=== PATIENT | male | born 1950 | race Caucasian/White ===

== ENCOUNTER 2020-06-29 14:10 | Emergency (ER) | payer MEDICARE, OTHER ==
--- NOTE | 2020-06-29 14:50 | EDM.PDOC ---
ED HPI GENERAL MEDICAL PROBLEM - General Chief Complaint: Syncope Stated Complaint: WEAK/LIGHTHEADED Time Seen by Provider: 06/29/20 14:40 Source of Information: Reports: Patient History Limitations: Reports: No Limitations - History of Present Illness INITIAL COMMENTS - FREE TEXT/NARRATIVE: 70-year-old male presents to the ED for evaluation of a near syncopal event that occurred while he was seated at his work desk in [employer]. He works as an senior financial reporting accountant. He estimates that he was sitting for a period of 10 to 15 minutes before he developed sudden onset of feeling ill. By this he means he felt lightheaded dizzy and generally unwell. Coworkers commented that he looked pallid and unhealthy. After approximately 10 minutes he was assisted to the clinic in [place] where he was assessed by nursing staff and had an ECG carried out which was normal sinus rhythm. They encouraged him to come to [place] for further evaluation. He denies starting any new medications. He does not take any energy drinks. He rarely drinks any alcohol. He does take a blood pressure pill in the morning and his protein shake in the morning. He states he started to have a sandwich at dinnertime but did not like the taste and threw it away. The ground seen was 144. He states he generally still feels a little unwell but much better than he did when this event occurred in the workplace. Onset: Today, Sudden Onset Date: 06/29/20 Onset Time: 13:30 Duration: Minutes:, Improving Location: Reports: Generalized Quality: Reports: Other Severity: Moderate (Weakness dizziness lightheadedness and generally just not feeling well.) Improves with: Reports: Other (Slowly improved with time.) Worsens with: Reports: None Context: Reports: Other (Spontaneous occurrence while seated at his desk at work as an senior financial reporting accountant.). Denies: Activity, Exercise, Lifting, Sick Contact, Trauma Associated Symptoms: Reports: Malaise, Nausea/Vomiting, Weakness. Denies: Confusion, Chest Pain, Cough, cough w sputum, Diaphoresis, Fever/Chills, Headaches, Loss of Appetite, Rash, Seizure, Shortness of Breath (Mild nausea), Syncope Treatments [employer]: Reports: Other (see below) (None.) - Related Data Allergies Allergy/AdvReac Type Severity Reaction Status Date / Time No Known Allergies Allergy Verified 03/10/15 08:37 Home Meds: Home Meds Benazepril HCl 20 mg PO DAILY 03/11/15 [History] allopurinoL [Zyloprim] 100 mg PO DAILY 03/11/15 [History] amLODIPine Besylate [Amlodipine Besylate] 5 mg PO DAILY 03/11/15 [History] hydroCHLOROthiazide [Hydrochlorothiazide] 12.5 mg PO DAILY 03/11/15 [History] Aspirin [Halfprin] 81 mg PO BEDTIME 06/29/20 [History] Fish Oil/[place]-3 Fatty Acids [Fish Oil 1,000 MG] 1 gram PO DAILY 06/29/20 [History] Levofloxacin [Levaquin] 500 mg PO DAILY #9 tablet 06/29/20 [Rx] Past Medical History Cardiovascular History: Reports: High Cholesterol, Hypertension Musculoskeletal History: Reports: Gout, Other (See Below) Other Musculoskeletal History: left ankle fracture with cast care - Infectious Disease History Infectious Disease History: Reports: Chicken Pox, Measles, Mumps Social & Family History - Tobacco Use Smoking Status *Q: Never Smoker - Caffeine Use Caffeine Use: Reports: Soda - Recreational Drug Use Recreational Drug Use: No - Living Situation & Occupation Living situation: Reports: Occupation: Employed (Works as an senior financial reporting accountant.) ED ROS GENERAL - Review of Systems Review Of Systems: See Below Constitutional: Reports: Malaise, Weakness, Fatigue, Decreased Appetite. Denies: Fever, Chills, Weight Loss HEENT: Reports: Glasses Respiratory: Denies: Shortness of Breath, Wheezing, Pleuritic Chest Pain, Cough, Sputum Cardiovascular: Reports: Blood Pressure Problem, Lightheadedness (With this episode at 1330 hrs. today.). Denies: Chest Pain, Claudication (Medication for blood pressure daily), Dyspnea on Exertion, Orthopnea, Palpitations Endocrine: Reports: Fatigue GI/Abdominal: Reports: No Symptoms : Reports: Frequency, Other (Nocturia usually x2.) Musculoskeletal: Reports: Joint Pain Skin: Reports: No Symptoms (It is gout in his feet. Has some arthritis in his knees hips low back at times) Neurological: Reports: Dizziness (Dizziness today while seated at the workplace.). Denies: Syncope Psychiatric: Reports: No Symptoms Hematologic/Lymphatic: Reports: No Symptoms Immunologic: Reports: No Symptoms ED EXAM, DIZZINESS - Physical Exam Exam: See Below Exam Limited By: No Limitations General Appearance: Alert, WD/WN, Anxious (Mildly apprehensive), Mild Distress, Other (Temperature is 36.4 with a heart rate of 91 is sinus respiratory is 20 O2 sats are 98% on room air. BP 1 [id number].) Eye Exam: Bilateral Eye: Normal Inspection, PERRL Throat/Mouth: Normal Inspection, Normal Lips, Normal Teeth, Normal Oropharynx Head Exam: Atraumatic, Normocephalic Neck: Normal Inspection, Supple, Non-Tender, Full Range of Motion. No: Carotid Bruit, Lymphadenopathy (L), Lymphadenopathy (R) Respiratory/Chest: No Respiratory Distress, Lungs Clear, Normal Breath Sounds, No Accessory Muscle Use, Chest Non-Tender Cardiovascular: Normal Peripheral Pulses, Regular Rate, Rhythm, No Edema, No Gallop, No Murmur, No Rub GI/Abdominal: Normal Bowel Sounds, Soft, Non-Tender, No Organomegaly, No Abnormal Bruit, No Mass, Pelvis Stable, Other (Mildly obese. No surgical scars.) Neurological: Alert, Normal Mood/Affect, Normal Dorsiflexion, CN II-XII Intact, Normal Plantar Flexion, Normal Reflexes, No Motor/Sensory Deficits, Oriented x 3, Other (No pronator drift. Rapid alternating movements are normal. Finger- nose assessment normal.) DTR: 1+: Achilles (R), Achilles (L), 2+: Bicep (R), Bicep (L), Patella (R), Patella (L) Back Exam: Normal Inspection, Full Range of Motion. No: CVA Tenderness (L), CVA Tenderness (R) Extremities: Normal Inspection, Normal Range of Motion, Non-Tender, No Pedal Edema Psychiatric: Normal Affect, Normal Mood, Anxious Skin Exam: Warm, Dry, Intact, Normal Color, No Rash (Oddly anxious of course.) EKG INTERPRETATION EKG Date: 06/29/20 Time: 14:49 Rhythm: NSR Rate (Beats/Min): 88 [place]: LAD-Left [place] Deviation P-Wave: Enlarged (Is 20 degrees left atrial hypertrophy) QRS: Other (Early R wave transition V2 V3 suggesting right ventricular hypertrophy versus septal hypertrophy pattern there are Q waves in leads III and aVF suggesting old inferior wall myocardial infarction) ST-T: Other (T wave flattening in aVF and lead III nonspecific) QT: Normal EKG Interpretation Comments: Abnormal ECG Course - Vital Signs Last Recorded V/S: Last Vital Signs Temp 36.2 C 06/29/20 18:34 Pulse 92 06/29/20 18:34 Resp 20 06/29/20 18:34 BP 139/82 06/29/20 18:34 Pulse Ox 95 06/29/20 18:34 Orthostatic Blood Pressure [ 135/75 Standing] Orthostatic Blood Pressure [ 136/80 Sitting] Orthostatic Blood Pressure [ 134/69 Supine] - Orders/Labs/Meds Orders: Active Orders 24 hr Category Date Time Status CULTURE URINE [RM] Stat Lab 06/29/20 15:20 Received EKG 12 Lead [EK] Stat Ther 06/29/20 14:33 Ordered Labs: Laboratory Tests 06/29/20 06/29/20 06/29/20 Range/Units 14:58 14:58 14:58 WBC 11.86 H (4.23-9.07) K/mm3 RBC 5.15 (4.63-6.08) M/mm3 Hgb 15.5 (13.7-17.5) gm/dl Hct 46.7 (40.1-51.0) % MCV 90.7 (79.0-92.2) fl MCH 30.1 (25.7-32.2) pg MCHC 33.2 (32.2-35.5) g/dl RDW Std Deviation 44.4 H (35.1-43.9) fL Plt Count 273 (163-337) K/mm3 MPV 9.2 L (9.4-12.3) fl Neut % (Auto) 83.7 H (34.0-67.9) % Lymph % (Auto) 9.4 L (21.8-53.1) % [place] % (Auto) 5.5 (5.3-12.2) % Eos % (Auto) 0.6 L (0.8-7.0) Baso % (Auto) 0.3 (0.1-1.2) % Neut # (Auto) 9.93 H (1.78-5.38) K/mm3 Lymph # (Auto) 1.12 L (1.32-3.57) K/mm3 Douglas # (Auto) 0.65 (0.30-0.82) K/mm3 Eos # (Auto) 0.07 (0.04-0.54) K/mm3 Baso # (Auto) 0.03 (0.01-0.08) K/mm3 Manual Slide Review Abnormal smear PT 10.6 (9.7-11.7) SECONDS INR 0.99 APTT 26 (22-31) SECONDS D-Dimer, Quantitative 0.26 (0.19-0.50) mg/L Sodium 136 (136-145) mEq/L Potassium 3.7 (3.5-5.1) mEq/L Chloride 97 L (98-107) mEq/L Carbon Dioxide 28 (21-32) mEq/L Anion Gap 14.7 (5-15) BUN 14 (7-18) mg/dL Creatinine 1.1 (0.7-1.3) mg/dL Est Cr Clr Drug Dosing 61.32 mL/min Estimated GFR (MDRD) > 60 (>60) mL/min BUN/Creatinine Ratio 12.7 L (14-18) Glucose 129 H (80-115) mg/dL Uric Acid (3.5-7.2) mg/dL Calcium 9.5 (8.5-10.1) mg/dL Magnesium 2.0 (1.8-2.4) mg/dl Total Bilirubin 0.4 (0.2-1.0) mg/dL AST 14 L (15-37) U/L ALT 26 (16-63) U/L Alkaline Phosphatase 80 (46-116) U/L CK-MB (CK-2) 1.2 (0-3.6) ng/ml Troponin I < 0.017 (0.00-0.056) ng/mL C-Reactive Protein 1.2 H* (<1.0) mg/dL NT-Pro-B Natriuret Pep (0-125) pg/mL Total Protein 7.7 (6.4-8.2) g/dl Albumin 3.9 (3.4-5.0) g/dl Globulin 3.8 gm/dL Albumin/Globulin Ratio 1.0 (1-2) Urine Color (Yellow) Urine Appearance (Clear) Urine pH (5.0-8.0) Ur Specific [place] (1.005-1.030) Urine Protein (Negative) Urine Glucose (UA) (Negative) Urine Ketones (Negative) Urine Occult Blood (Negative) Urine Nitrite (Negative) Urine Bilirubin (Negative) Urine Urobilinogen (0.2-1.0) Ur Leukocyte Esterase (Negative) Urine RBC (0-5) /hpf Urine WBC (0-5) /hpf Ur Squamous Epith Cells (0-5) /hpf Urine Bacteria (FEW) /hpf Urine Mucus (FEW) /hpf 06/29/20 06/29/20 06/29/20 Range/Units 14:58 14:58 15:20 WBC (4.23-9.07) K/mm3 RBC (4.63-6.08) M/mm3 Hgb (13.7-17.5) gm/dl Hct (40.1-51.0) % MCV (79.0-92.2) fl MCH (25.7-32.2) pg MCHC (32.2-35.5) g/dl RDW Std Deviation (35.1-43.9) fL Plt Count (163-337) K/mm3 MPV (9.4-12.3) fl Neut % (Auto) (34.0-67.9) % Lymph % (Auto) (21.8-53.1) % [place] % (Auto) (5.3-12.2) % Eos % (Auto) (0.8-7.0) Baso % (Auto) (0.1-1.2) % Neut # (Auto) (1.78-5.38) K/mm3 Lymph # (Auto) (1.32-3.57) K/mm3 [place] # (Auto) (0.30-0.82) K/mm3 Eos # (Auto) (0.04-0.54) K/mm3 Baso # (Auto) (0.01-0.08) K/mm3 Manual Slide Review PT (9.7-11.7) SECONDS INR APTT (22-31) SECONDS D-Dimer, Quantitative (0.19-0.50) mg/L Sodium (136-145) mEq/L Potassium (3.5-5.1) mEq/L Chloride (98-107) mEq/L Carbon Dioxide (21-32) mEq/L Anion Gap (5-15) BUN (7-18) mg/dL Creatinine (0.7-1.3) mg/dL Est Cr Clr Drug Dosing mL/min Estimated GFR (MDRD) (>60) mL/min BUN/Creatinine Ratio (14-18) Glucose (80-115) mg/dL Uric Acid 4.9 (3.5-7.2) mg/dL Calcium (8.5-10.1) mg/dL Magnesium (1.8-2.4) mg/dl Total Bilirubin (0.2-1.0) mg/dL AST (15-37) U/L ALT (16-63) U/L Alkaline Phosphatase (46-116) U/L CK-MB (CK-2) (0-3.6) ng/ml Troponin I (0.00-0.056) ng/mL C-Reactive Protein (<1.0) mg/dL NT-Pro-B Natriuret Pep 19 (0-125) pg/mL Total Protein (6.4-8.2) g/dl Albumin (3.4-5.0) g/dl Globulin gm/dL Albumin/Globulin Ratio (1-2) Urine Color Yellow (Yellow) Urine Appearance Clear (Clear) Urine pH 7.0 (5.0-8.0) Ur Specific [place] 1.025 (1.005-1.030) Urine Protein Negative (Negative) Urine Glucose (UA) Negative (Negative) Urine Ketones Negative (Negative) Urine Occult Blood Trace-intact H (Negative) Urine Nitrite Negative (Negative) Urine Bilirubin Negative (Negative) Urine Urobilinogen 0.2 (0.2-1.0) Ur Leukocyte Esterase Trace H (Negative) Urine RBC 0-5 (0-5) /hpf Urine WBC 5-10 H (0-5) /hpf Ur Squamous Epith Cells Not seen (0-5) /hpf Urine Bacteria Few (FEW) /hpf Urine Mucus Few (FEW) /hpf Meds: Medications Discontinued Medications Generic Name Dose Route Start Last Admin Trade Name Freq PRN Reason Stop Dose Admin Sodium Chloride 1,000 mls @ 500 mls/hr 06/29/20 15:00 06/29/20 15:21 Normal Saline IV 500 mls/hr ASDIRECTED PRO Administration Levofloxacin/Dextrose 500 mg/ 100 mls @ 100 mls/hr 06/29/20 16:49 06/29/20 17:04 Premix IV 06/29/20 17:48 100 mls/hr ONETIME ONE Administration - Radiology Interpretation Free Text/Narrative:: 70-year-old male presents to the ED for evaluation of a near syncopal event that occurred while 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 He believes he was sitting there for 10 to 15 minutes before he started to feel suddenly unwell with lightheadedness dizziness and coworkers commented that he appeared pale and ill in appearance. He went to the clinic in [place] with their assistance they drove him. And he was found to be in sinus rhythm at 80/min. No signs of acute ischemia were identified. ECG done by triage nurse here shows evidence of early R wave transition suggestive of right ventricular hypertrophy versus septal hypertrophy pattern. There are also Q waves in leads III and aVF suggestive of an old inferior wall myocardial infarction but no signs of acute ischemic change. Orthostatic BPs laying was 134/69 with a heart rate of 83 and standing it was 135/75 with a heart rate of 94 i.e. not orthostatic. Therefore I do not have any reason for this spell to have occurred. He denies being in any pain at the time of occurrence. Cerner is therefore for some form of arrhythmia that may have precipitated his event. It lasted between 5 and 8 minutes. He will be on the monitor continuously while in the department. Chest x-ray and routine lab work will be collected. Chances are he will be sent home on a Holter monitor. - Re-Assessments/Exams Free Text/Narrative Re-Assessment/Exam: 06/29/20 16:30 White count is mildly elevated at 11.86. The differential shows 84% neutrophils. Hemoglobin is 15.5 with hematocrit of 46.7. Platelet count is normal at 273,000. Micro reveals lymphopenia with no bands cells seen. PT is 10.6 with an INR of 0.99. PTT is 26 d-dimer is 0.26. Sodium 136 with a potassium of 3.7. Chloride is 97 with a bicarb of 28. Anion gap is 14.7. BUN is 14 with a creatinine of 1.1. GFR is greater than 60. Glucose is slightly elevated at 129. Uric acid is normal at 4.9. Calcium is 9.5 with a magnesium of 2.0. Liver function is normal. CK-MB fraction is 1.2 troponin I is less than 0.017 C-reactive protein is minimally elevated at 1.2. Total protein is 7.7 with an albumin fraction of 3.9. Urinalysis shows trace of occult blood trace of leukocyte esterase and 5-10 WBCs per high-power field. A urine culture will be ordered. Chest x-ray done portably is completely normal. Normal lung luz no sign of pneumonia. Cardiac silhouette is normal as well. 06/29/20 16:50 I have discussed the findings with the patient. Repeated his abdominal examination and he has no localized tenderness to suggest an occult source of infection in the abdomen. Patient does feel just slightly warm to palpation. He has had no chills. He has had no arrhythmias at all while in the hospital. Suspect that he may have an occult prostatitis. Will place him on Levaquin 500 mg IV at this time. Departure - Departure Time of Disposition: 18:12 Disposition: Home, Self-Care 01 Condition: Fair Clinical Impression: Prostatitis, unspecified Qualifiers: Prostatitis type: acute Qualified Code(s): N41.0 - Acute prostatitis - Discharge Information *PRESCRIPTION DRUG MONITORING PROGRAM REVIEWED*: Not Applicable *COPY OF PRESCRIPTION DRUG MONITORING REPORT IN PATIENT NKECHI: Not Applicable Prescriptions: Levofloxacin [Levaquin] 500 mg PO DAILY #9 tablet Instructions: Prostatitis, [id number] Referrals: Nabil Saravia MD [Primary Care Provider] - Forms: ED Department Discharge Additional Instructions: Evaluation in the emergency room today in regards to development of sudden onset of illness while working at your desk this afternoon. General sense of lightheadedness dizziness weakness and coworkers commented that you appeared quite pallid in appearance. Clinically you may have a very low-grade fever. Lab tests revealed a slightly elevated white blood cell count with a left shift suggesting that you were fighting off an infection. Chest x-ray proved to be negative. You have no other signs or symptoms that would be worrisome for COVID type illness. Benign abdominal examination . The urinalysis did show 5-10 pus cells per high-power field jesting a low-grade urinary tract infection. Therefore the concern is whether or not you have a low-grade urinary tract infection most commonly arising from the prostate gland which can be quite difficult to diagnose. Decision made to treat you for this infection with Levaquin 500 mg initially given intravenously in the emergency department. You will then have to take a 500 mg tablet once daily at suppertime for the next 9 days to bring the infection under control. Return to the emergency room if any further similar symptoms occur. There was no evidence that you had any underlying heart irregular rhythms to account for your symptoms. Follow-up with personal care provider if any further problems occur. Sepsis Event Note (ED) - Evaluation Sepsis Screening Result: No Definite Risk - Focused Exam Vital Signs: Vital Signs Temp Pulse Resp BP Pulse Ox 06/29/20 18:34 36.2 C 92 20 139/82 95 06/29/20 14:29 36.4 C 91 20 144/74 H 98 - My Orders Last 24 Hours: My Active Orders 06/29/20 14:33 EKG 12 Lead [EK] Stat 06/29/20 15:20 CULTURE URINE [RM] Stat - Assessment/Plan Last 24 Hours: My Active Orders 06/29/20 14:33 EKG 12 Lead [EK] Stat 06/29/20 15:20 CULTURE URINE [RM] Stat
[2020-06-29] MEDS ORDERED: Sodium Chloride 0.9% 1,000 ML IV SCH (15:00)
--- NOTE | 2020-06-29 15:46 | CR ---
Chest: Portable view of the chest was obtained. Comparison: No prior chest imaging is available. Heart size is normal. Tortuous thoracic aorta is seen. Lungs are clear with no acute parenchymal change. Bony structures are grossly intact. Impression: 1. Nothing acute is identified on portable chest x-ray. Diagnostic code #1 This report was dictated in MDT
[2020-06-29] MEDS ORDERED: Levofloxacin/Dextrose 5%-Water 500 MG in Premix Bag 1 BAG IV ONE (16:49)
[2020-06-29 18:34] VITALS: BP 139/82; PULSE 92
== END 2020-06-29 18:40 | disposition home or self-care (01) ==
LOC: JD.ED 14:10
DX: N41.0 Acute prostatitis (principal); I10 Essential (primary) hypertension; M10.9 Gout, unspecified; E66.9 Obesity, unspecified; Z68.33 Body mass index [BMI] 33.0-33.9, adult; Z79.82 Long term (current) use of aspirin; Z79.899 Other long term (current) drug therapy
CPT/HCPCS: 36415; 71045; 80053; 81001; 82553; 83735; 83880; 84484; 84550; 85025; 85379; 85610; 85730; 86140; 87086; 93005; 96361; 96365; 99284; J1956; J7030; 93010; 99283

== ENCOUNTER 2023-06-18 11:02 | Emergency (ER) | payer OTHER, MEDICARE ==
[2023-06-18] MEDS ORDERED: Sodium Chloride 0.9% 10 ML Syringe FLUSH PRN (11:19)
[2023-06-18] MEDS ORDERED: Iopamidol 612 MG/ML 100 ML Bottle IVPUSH ONE ×2 (11:19→11:51)
[2023-06-18 11:30] LABS: BASOPHILS ABSOLUTE AUTO 0.1 K/mm3 (0.0-0.2); BASOPHILS PERCENT AUTO 0.3 % (0.0-1.0); EOSINOPHILS ABSOLUTE AUTO 0.1 K/mm3 (0.0-0.4); EOSINOPHILS PERCENT AUTO 0.6 % (0.0-6.0); HEMATOCRIT 42.5 % (42.0-52.0); HEMOGLOBIN 14.8 gm/dl (14.0-18.0); IMMATURE GRAN ABSOLUTE AUTO 0.38 K/mm3 (0.00-0.05); IMMATURE GRAN PERCENT AUTO 1.7 % (0.0-0.4); LYMPHOCYTES ABSOLUTE AUTO 4.3 K/mm3 (1.0-4.8); LYMPHOCYTES PERCENT AUTO 19.6 % (24.0-44.0); MEAN CORPUSCULAR HEMOGLOBIN 31.4 pg (28.0-32.0); MEAN CORPUSCULAR HGB CONC 34.8 g/dl (32.0-36.0); MEAN CORPUSCULAR VOLUME 90.2 fl (83.0-99.0); MEAN PLATELET VOLUME 9.1 fl (9.4-12.4); MONOCYTES ABSOLUTE AUTO 1.1 K/mm3 (0.0-0.8); MONOCYTES PERCENT AUTO 4.9 % (0.0-8.0); NEUTROPHILS ABSOLUTE AUTO 16.1 K/mm3 (1.8-7.7); NEUTROPHILS PERCENT AUTO 72.9 % (41.0-71.0); PLATELET COUNT,PLT 318 K/mm3 (150-400); RED BLOOD CELL COUNT 4.71 M/mm3 (4.52-5.90); WHITE BLOOD CELL COUNT,WBC 22.05 K/mm3 (3.9-11.3)
[2023-06-18] MEDS ORDERED: Lactated Ringers 1,000 ML IV SCH (11:30)
[2023-06-18 11:42] LABS: ALBUMIN 3.8 g/dl (3.4-5.0); ANION GAP 15.8 (5-15); BILIRUBIN TOTAL 0.8 mg/dL (0.2-1.0); BUN/CREATININE RATIO 14.6 (14-18); CALCIUM 9.4 mg/dL (8.5-10.1); CREATININE 1.3 mg/dL (0.7-1.3); EST CRCL DRUG DOSING (CG) 48.02 mL/min; POTASSIUM,K 3.8 mEq/L (3.5-5.1); PROTEIN TOTAL,TP 7.5 g/dl (6.4-8.2)
[2023-06-18 12:02] LABS: INR 0.99; PROTHROMBIN TIME 10.6 SECONDS (9.7-12.0)
[2023-06-18 12:03] LABS: PTT,PARTIAL THROMBOPLSTIN TIME 24.3 SECONDS (21.7-31.4)
[2023-06-18] MEDS ORDERED: Morphine 4 MG/ML Syringe IVPUSH ONE ×2 (12:35→12:36)
[2023-06-18] MEDS ORDERED: Naloxone 0.4 MG/ML SDV IVPUSH PRN (12:36)
[2023-06-18] MEDS ORDERED: Morphine 4 MG/ML Syringe ONE (12:37)
[2023-06-18] MEDS ORDERED: Diphtheria,Pertussis(Acell),Tetanus Vaccine 0.5 ML Syringe IM ONE (12:54)
[2023-06-18] MEDS ORDERED: ceFAZolin 2 GM in Sodium Chloride 0.9% 50 ML IV ONE (13:06)
[2023-06-18] MEDS ORDERED: Tranexamic Acid 1,000 MG/10 ML Vial IV ONE (13:15)
[2023-06-18] MEDS ORDERED: Sodium Chloride 0.9% 1,000 ML ONE (13:16)
[2023-06-18] MEDS ORDERED: Tranexamic Acid 1,000 MG in Sodium Chloride 0.9% 100 ML IV ONE (13:45)
[2023-06-18] MEDS ORDERED: fentaNYL 100 MCG/2 ML SDV IVPUSH ONE ×3 (13:56→14:56)
[2023-06-18 13:58] LABS: HEMATOCRIT 40.6 % (42.0-52.0); HEMOGLOBIN 13.8 gm/dl (14.0-18.0)
[2023-06-18 19:18] VITALS: BP 106/59; PULSE 96
== END 2023-06-18 15:15 ==
LOC: JD.ED 11:02
DX: S72.001A Fracture of unspecified part of neck of right femur, initial encounter for closed fracture (principal); S82.251A Displaced comminuted fracture of shaft of right tibia, initial encounter for closed fracture; S82.451A Displaced comminuted fracture of shaft of right fibula, initial encounter for closed fracture; S02.31XA Fracture of orbital floor, right side, initial encounter for closed fracture; S02.841A Fracture of lateral orbital wall, right side, initial encounter for closed fracture; S02.40EA Zygomatic fracture, right side, initial encounter for closed fracture; E78.00 Pure hypercholesterolemia, unspecified; I10 Essential (primary) hypertension; Z79.82 Long term (current) use of aspirin; Z79.899 Other long term (current) drug therapy; Z23 Encounter for immunization; V23.49XA Other motorcycle driver injured in collision with car, pick-up truck or van in traffic accident, initial encounter; Y92.410 Unspecified street and highway as the place of occurrence of the external cause
CPT/HCPCS: 36415; 36430; 70450; 71260; 72125; 73552; 73590; 74177; 80053; 85014; 85018; 85025; 85610; 85730; 86850; 86900; 86901; 86922; 90471; 90715; 96361; 96365; 96368; 96375; 99285; J0690; J2270; J3010; J3490; J7120; P9016; Q9967; 99284

== ENCOUNTER 2025-09-15 15:07 | Emergency (ER) | payer MEDICARE, OTHER ==
[2025-09-15] MEDS ORDERED: Sodium Chloride 0.9% 10 ML Syringe FLUSH PRN (15:23)
[2025-09-15 15:30] LABS: BASOPHILS ABSOLUTE AUTO 0.1 K/mm3 (0.0-0.2); BASOPHILS PERCENT AUTO 0.7 % (0.0-1.0); EOSINOPHILS ABSOLUTE AUTO 0.1 K/mm3 (0.0-0.4); EOSINOPHILS PERCENT AUTO 1.1 % (0.0-6.0); IMMATURE GRAN ABSOLUTE AUTO 0.04 K/mm3 (0.00-0.05); IMMATURE GRAN PERCENT AUTO 0.3 % (0.0-0.4); LYMPHOCYTES ABSOLUTE AUTO 1.2 K/mm3 (1.0-4.8); LYMPHOCYTES PERCENT AUTO 10.5 % (24.0-44.0); MEAN PLATELET VOLUME 10.0 fl (9.4-12.4); MONOCYTES ABSOLUTE AUTO 0.8 K/mm3 (0.0-0.8); MONOCYTES PERCENT AUTO 7.1 % (0.0-8.0); NEUTROPHILS ABSOLUTE AUTO 9.4 K/mm3 (1.8-7.7); NEUTROPHILS PERCENT AUTO 80.3 % (41.0-71.0); NRBC ABSOLUTE 0.00 (0.00-0.02); NRBC PERCENT 0.0 % (0.0-0.2); PLATELET COUNT,PLT 237 K/mm3 (150-400); RED BLOOD CELL COUNT 4.30 M/mm3 (4.52-5.90); WHITE BLOOD CELL COUNT,WBC 11.76 K/mm3 (3.9-11.3)
[2025-09-15 16:02] LABS: A/G RATIO 1.1 (1-2); ALANINE AMINOTRANSFERASE,ALT 34.0 U/L (16-63); ASPARTATE AMNIOTRANSFERASE,AST 18.0 U/L (15-37); BILIRUBIN TOTAL 0.9 mg/dL (0.2-1.0); BLOOD UREA NITROGEN,BUN 20.0 mg/dL (7-18); CARBON DIOXIDE,CO2 28.0 mEq/L (21-32); CHLORIDE,CL 100.0 mEq/L (98-107); CREATININE 1.2 mg/dL (0.7-1.3); EST CRCL DRUG DOSING (CG) 50.49 mL/min; ESTIMATED GFR 63.0 mL/min (>60); GLUCOSE RANDOM 116.0 mg/dL (70-99); POTASSIUM,K 4.2 mEq/L (3.5-5.1); PROTEIN TOTAL,TP 7.1 g/dl (6.4-8.2); SODIUM,NA 137.0 mEq/L (136-145)
[2025-09-15 16:05] LABS: TROPONIN I HIGH SENSITIVITY 160.0 pg/mL (<=76)
[2025-09-15] MEDS: Iopamidol 755 Mg/ML 100 ML Bottle IVPUSH ONE (16:40)
[2025-09-15] MEDS: Sodium Chloride 0.9% 10 ML Syringe FLUSH ONE (16:40)
[2025-09-15] MEDS: Furosemide 40 MG/4 ML VIAL IVPUSH ONE (17:32)
[2025-09-15 19:07] VITALS: BP 109/58; PULSE 122
== END 2025-09-15 19:00 | disposition home or self-care (01) ==
LOC: JD.ED 15:07
DX: J90 Pleural effusion, not elsewhere classified (principal); I11.0 Hypertensive heart disease with heart failure; I50.9 Heart failure, unspecified; Z79.899 Other long term (current) drug therapy
CPT/HCPCS: 36415; 71275; 80053; 83735; 83880; 84484; 85025; 96374; 99285; A9270; J1938; Q9967

== ENCOUNTER 2025-09-26 12:52 | Emergency (ER) | payer MEDICARE, OTHER ==
[2025-09-26] MEDS ORDERED: Sodium Chloride 0.9% 10 ML Syringe FLUSH PRN (12:57)
[2025-09-26 13:51] LABS: A/G RATIO 1.2 (1-2); ALANINE AMINOTRANSFERASE,ALT 33.0 U/L (16-63); ASPARTATE AMNIOTRANSFERASE,AST 19.0 U/L (15-37); BILIRUBIN TOTAL 0.9 mg/dL (0.2-1.0); BLOOD UREA NITROGEN,BUN 28.0 mg/dL (7-18); CARBON DIOXIDE,CO2 27.0 mEq/L (21-32); CHLORIDE,CL 99.0 mEq/L (98-107); CREATININE 1.1 mg/dL (0.7-1.3); EST CRCL DRUG DOSING (CG) 55.08 mL/min; ESTIMATED GFR 70.0 mL/min (>60); GLUCOSE RANDOM 120.0 mg/dL (70-99); POTASSIUM,K 4.2 mEq/L (3.5-5.1); PROTEIN TOTAL,TP 7.1 g/dl (6.4-8.2); SODIUM,NA 137.0 mEq/L (136-145)
[2025-09-26 13:54] LABS: TROPONIN I HIGH SENSITIVITY 187.0 pg/mL (<=76)
[2025-09-26 13:59] LABS: APPEARANCE,URINE CLEAR (Clear); GLUCOSE,URINE 2+ (Negative); OCCULT BLOOD,URINE NEGATIVE (Negative)
[2025-09-26 14:19] LABS: BASOPHILS ABSOLUTE AUTO 0.1 K/mm3 (0.0-0.2); BASOPHILS PERCENT AUTO 0.6 % (0.0-1.0); EOSINOPHILS ABSOLUTE AUTO 0.1 K/mm3 (0.0-0.4); EOSINOPHILS PERCENT AUTO 1.5 % (0.0-6.0); IMMATURE GRAN ABSOLUTE AUTO 0.02 K/mm3 (0.00-0.05); IMMATURE GRAN PERCENT AUTO 0.2 % (0.0-0.4); LYMPHOCYTES ABSOLUTE AUTO 0.9 K/mm3 (1.0-4.8); LYMPHOCYTES PERCENT AUTO 9.1 % (24.0-44.0); MEAN PLATELET VOLUME 10.6 fl (9.4-12.4); MONOCYTES ABSOLUTE AUTO 0.6 K/mm3 (0.0-0.8); MONOCYTES PERCENT AUTO 6.4 % (0.0-8.0); NEUTROPHILS ABSOLUTE AUTO 7.9 K/mm3 (1.8-7.7); NEUTROPHILS PERCENT AUTO 82.2 % (41.0-71.0); NRBC ABSOLUTE 0.00 (0.00-0.02); NRBC PERCENT 0.0 % (0.0-0.2); PLATELET COUNT,PLT 235 K/mm3 (150-400); RED BLOOD CELL COUNT 4.47 M/mm3 (4.52-5.90); WHITE BLOOD CELL COUNT,WBC 9.58 K/mm3 (3.9-11.3)
[2025-09-26 16:31] VITALS: BP 104/76; PULSE 116
== END 2025-09-26 16:35 | disposition home or self-care (01) ==
LOC: JD.ED 12:52
DX: I11.0 Hypertensive heart disease with heart failure (principal); I50.9 Heart failure, unspecified; Z86.16 Personal history of COVID-19; Z79.899 Other long term (current) drug therapy
CPT/HCPCS: 36415; 71046; 71046-26; 80053; 81003; 83880; 84484; 85025; 85379; 86140; 87428-QW; 93005; 93010; 99284; 99285